=== PATIENT | female | born 1955 | race Caucasian/White ===

== ENCOUNTER 2023-01-26 07:04 | Day surgery (SDC) | payer OTHER ==
[~2023-01-26] VITALS: Ht 157.5 cm; Wt 96.6 kg
[2023-01-26] VITALS (16 sets, daily range): BP systolic 94–130; BP diastolic 51–84
[~2023-01-26 07:04] MED LIST: ALBU90OI INH; ASPI81CH PO; BREZTRI AEROS10.7 GM INH; LOSA50 PO; PRAV20 PO; Vitamin D1000 UNI1 PO; [UNRECOGNIZED DRUG - OTHER] PO
--- NOTE | 2023-01-26 09:32 | NUR ---
Ambulatory in Day Surgery. History, Chart, Medications and Allergies reviewed before start of procedure. Surgical site prepped with 2% Chlorhexidine cloth wipe. Patient confirms NPO status and agrees with scheduled surgery. Patient reports completing Chlorhexadine shower X2 prior to admission to hospital. Patient States Post-Procedure ride home has been arranged.
--- NOTE | 2023-01-26 16:26 | NUR ---
Discharge instructions reviewed with patient. Patient verbalizes understanding. Copy given to patient to take home. Patient States Post-Procedure ride home has been arranged. Discharged via wheelchair to private car for ride home.
== END 2023-01-26 16:20 | disposition home or self-care (01) ==
LOC: ORSCMMR 07:04 → NM 07:04 → ORSCMMR 07:05 → NM 07:06 → ORSCMMR 07:06 → NM 08:00 → ORSCMMR 16:20
PROVIDERS: Surgery
PROC: 07B60ZX Excision of Left Axillary Lymphatic, Open Approach, Diagnostic (ICD-10-PCS; principal; 2023-01-26 10:00)
PROC: 0HBU0ZZ Excision of Left Breast, Open Approach (ICD-10-PCS; principal; 2023-01-26 10:00)
DX: C50.412 Malignant neoplasm of upper-outer quadrant of left female breast (principal); Z17.0 Estrogen receptor positive status [ER+]; D36.0 Benign neoplasm of lymph nodes; I10 Essential (primary) hypertension; E78.00 Pure hypercholesterolemia, unspecified; Z87.891 Personal history of nicotine dependence; E66.9 Obesity, unspecified; Z68.39 Body mass index [BMI] 39.0-39.9, adult; Z79.899 Other long term (current) drug therapy; Z79.82 Long term (current) use of aspirin
CPT/HCPCS: 38792; 76098; 88307; 88342; A9520; J0690; J1100; J1885; J2371; J2405; J2704; J3010; J7120; Q9968

== ENCOUNTER 2025-01-01 08:28 | Day surgery (SDC) | payer OTHER ==
[2025-01-01] VITALS (10 sets, daily range): BP systolic 117–139; BP diastolic 53–71
[~2025-01-01] VITALS: Ht 154.9 cm; Wt 98.0 kg
[~2025-01-01 08:28] MED LIST changes: +Acetaminophen650 M1 PO; +Bupivacaine 0.5% HCl 5 MG/ML 30MLVIAL ONE
[2025-01-01] MEDS ORDERED: CeFAZolin Sodium 2,000 MG in NS 100 ML IV SCH (09:05)
--- NOTE | 2025-01-01 09:11 | NUR ---
Ambulatory in Day Surgery History, Chart, Medications and Allergies reviewed before start of procedure. Pre-Op teaching done. Pt verbalizes understanding. Patient States Post-Procedure ride home has been arranged.
[2025-01-01] MEDS ORDERED: Midazolam HCl 1MG / ML 2ML Vial ONE (09:19)
[2025-01-01] MEDS ORDERED: FentaNYL Citrate 50 MCG/ML 2 ML Injection ONE (09:19)
[2025-01-01] MEDS ORDERED: Rocuronium Bromide 10 MG/ML 5ML Injection IV ONE ×2 (09:55→10:57)
[2025-01-01] MEDS ORDERED: Bupivacaine 0.5% HCl 5 MG/ML 30MLVIAL ONE (10:00)
--- NOTE | 2025-01-01 10:14 | NUR ---
UPPER AND LOWER DENTURES SENT TO PACU.
[2025-01-01] MEDS ORDERED: Sugammadex Sodium 200 MG/2ML SDV (100 MG/ML) ONE ×2 (10:58→11:39)
[2025-01-01] MEDS ORDERED: Ketorolac Tromethamine 30mg Vial ONE (10:58)
[2025-01-01] MEDS ORDERED: HYDROcodone 5-APAP 325 TAB PO PRN ×2 (12:10→13:05)
--- NOTE | 2025-01-01 13:20 | NUR ---
Patient up to Ambulate independently. Gait steady. Discharge instructions reviewed with patient. Patient verbalizes understanding. Copy given to patient to take home, [facility]. Patient States Post-Procedure ride home has been arranged. Discharged via wheelchair to private car for ride home. PT BREAST BINDER REPLACED/REPOSITIONED PER PT REQ. PT INCISION C/D/I. PT REPORTS PAIN MUCH BETTER, DECLINES NEED FOR 2ND PAIN MED.
== END 2025-01-01 13:20 | disposition home or self-care (01) ==
LOC: ORSCMMR 08:28 → ORD 10:00 → ORSCMMR 10:00 → ORD 10:30 → ORSCMMR 13:20
PROVIDERS: Surgery
PROC: 0HBT0ZZ Excision of Right Breast, Open Approach (ICD-10-PCS; principal; 2025-01-01 10:00)
DX: C50.411 Malignant neoplasm of upper-outer quadrant of right female breast (principal); Z17.0 Estrogen receptor positive status [ER+]; Z17.21 Progesterone receptor positive status; Z17.32 Human epidermal growth factor receptor 2 negative status; I10 Essential (primary) hypertension; J45.909 Unspecified asthma, uncomplicated; F33.8 Other recurrent depressive disorders; E78.2 Mixed hyperlipidemia; K21.9 Gastro-esophageal reflux disease without esophagitis; E66.9 Obesity, unspecified; Z68.41 Body mass index [BMI] 40.0-44.9, adult; Z79.899 Other long term (current) drug therapy; Z87.891 Personal history of nicotine dependence
CPT/HCPCS: 76098; 88305; 88307; A9270; J0690; J1885; J2250; J2704; J3010; J7120

== ENCOUNTER 2025-01-18 10:17 | Day surgery (SDC) | payer OTHER ==
[~2025-01-18] VITALS: Ht 154.9 cm; Wt 98.2 kg
[2025-01-18] VITALS (13 sets, daily range): BP systolic 111–139; BP diastolic 58–90
[~2025-01-18 10:17] MED LIST changes: -Bupivacaine 0.5% HCl 5 MG/ML 30MLVIAL ONE
[2025-01-18] MEDS ORDERED: FentaNYL Citrate 50 MCG/ML 2 ML Injection ONE (10:41)
[2025-01-18] MEDS ORDERED: HYDROmorphone HCl/Pf 1MG SYR IV PRN (10:55)
[2025-01-18] MEDS ORDERED: FentaNYL Citrate 50 MCG/ML 2 ML Injection IV PRN ×2 (10:55)
[2025-01-18] MEDS ORDERED: Ondansetron HCl 2 MG / ML 2ML Vial IV PRN (10:55)
[2025-01-18] MEDS ORDERED: Albuterol 2.5 MG/3 ML VIAL INH PRN (10:55)
[2025-01-18] MEDS ORDERED: Ondansetron HCl 2 MG / ML 2ML Vial ONE (11:10)
[2025-01-18] MEDS ORDERED: Dexamethasone Sod Phos 10 MG/ML 1ML VIAL ONE (11:10)
--- NOTE | 2025-01-18 11:20 | NUR ---
Pre-Op teaching done. Pt verbalizes understanding. Patient confirms NPO status and agrees with scheduled surgery. Patient States Post-Procedure ride home has been arranged. History, Chart, Medications and Allergies reviewed before start of procedure.
[2025-01-18] MEDS ORDERED: Bupivacaine 0.5% W/EPI 1:200000 SDV 30 ML Vial ONE (11:49)
[2025-01-18] MEDS ORDERED: CeFAZolin Sodium 2,000 MG in NS 100 ML IV SCH (11:50)
[2025-01-18] MEDS ORDERED: Bupivacaine 0.5% HCl 5 MG/ML 30MLVIAL ONE (11:50)
[2025-01-18] MEDS ORDERED: Ketorolac Tromethamine 30mg Vial ONE ×2 (12:31→14:27)
[2025-01-18] MEDS ORDERED: OxyCODONE 5 mg/Acetamin 325 mg TABLET PO PRN (14:10)
[2025-01-18] MEDS ORDERED: HYDROmorphone HCl/Pf 1MG SYR ONE ×2 (14:18→14:39)
--- NOTE | 2025-01-18 15:44 | NUR ---
PT DOING WELL MEDICATED WITH 1 PERCOCET FOR PAIN. NO COMPLAINTS OF N/V Patient States Post-Procedure ride home has been arranged. Discharged via wheelchair to private car for ride home. Discharge instructions reviewed with patient. Patient verbalizes understanding. Copy given to patient to take home.
== END 2025-01-18 23:00 | disposition home or self-care (01) ==
LOC: ORSCMMR 10:17 → ORD 12:30 → ORSCMMR 12:30
PROVIDERS: Surgery
PROC: 07B50ZX Excision of Right Axillary Lymphatic, Open Approach, Diagnostic (ICD-10-PCS; principal; 2025-01-18 12:30)
PROC: 0HBT0ZZ Excision of Right Breast, Open Approach (ICD-10-PCS; principal; 2025-01-18 12:30)
DX: C50.411 Malignant neoplasm of upper-outer quadrant of right female breast (principal); D36.0 Benign neoplasm of lymph nodes; Z17.0 Estrogen receptor positive status [ER+]; Z17.21 Progesterone receptor positive status; Z17.32 Human epidermal growth factor receptor 2 negative status; Z85.3 Personal history of malignant neoplasm of breast; I10 Essential (primary) hypertension; J45.909 Unspecified asthma, uncomplicated; F32.9 Major depressive disorder, single episode, unspecified; E78.2 Mixed hyperlipidemia; Z79.899 Other long term (current) drug therapy; E66.9 Obesity, unspecified; Z68.39 Body mass index [BMI] 39.0-39.9, adult
CPT/HCPCS: 38792; 88305; 88307; 88342; A9270; A9520; J0690; J1100; J1171; J1885; J2405; J2704; J3010; J7120; Q9968

== ENCOUNTER → 2025-01-28 | Outpatient (CLI) | payer OTHER ==
[~2025-01-28] MED LIST changes: +OXYC5 PO
[2025-01-28 15:47] LABS: BASOPHILS ABSOLUTE AUTO 0.05 K/mm3 (0.00-0.23); BASOPHILS PERCENT AUTO 1 % (0-2); EOSINOPHILS ABSOLUTE AUTO 0.20 K/mm3 (0.00-0.68); EOSINOPHILS PERCENT AUTO 3 % (0-6); Hematocrit 42.1 % (33.0-51.0); Hemoglobin 13.7 g/dL (11.5-16.0); IMMATURE GRAN ABSOLUTE AUTO 0.05 K/mm3 (0.00-0.10); IMMATURE GRAN PERCENT AUTO 1 % (0-1); LYMPHOCYTES ABSOLUTE AUTO 1.63 K/mm3 (0.84-5.20); LYMPHOCYTES PERCENT AUTO 22 % (21-46); MONOCYTES ABSOLUTE AUTO 0.50 K/mm3 (0.16-1.47); MONOCYTES PERCENT AUTO 7 % (4-13); Mean Corpuscular HGB Conc 32.5 g/dL (31.5-36.5); Mean Corpuscular Volume 92 fL (80-100); NEUTROPHILS ABSOLUTE AUTO 4.87 K/mm3 (1.96-9.15); NEUTROPHILS PERCENT AUTO 67 % (41-73); NRBC ABSOLUTE 0.00 K/mm3 (0.00-0.02); NRBC Auto 0.0 /100 WBC (0.0-0.2); Platelet Count 233 K/mm3 (150-400); RDW Coefficient Variation 13.2 % (11.7-14.2); RDW Standard Deviation 44.6 fL (35.1-46.3)
[2025-01-28 19:13] LABS: Anion Gap 5.0 mmol/L (3-11); Blood Urea Nitrogen 13.0 mg/dL (8-24); CO2, Blood 30.0 mmol/L (21-32); Calcium, Blood 9.0 mg/dL (8.5-10.1); Chloride, Blood 106.0 mmol/L (98-108); Creatinine, Blood 0.85 mg/dL (0.40-1.00); Glucose, Blood 144.0 mg/dL (70-99); Potassium, Blood 3.9 mmol/L (3.5-5.5); Sodium, Blood 137.0 mmol/L (136-145)
== END | disposition home or self-care (01) ==
LOC: LAB SHORT 14:28 → LAB 14:28
PROVIDERS: Surgery
DX: Z01.812 Encounter for preprocedural laboratory examination (principal); C50.411 Malignant neoplasm of upper-outer quadrant of right female breast
CPT/HCPCS: 80048; 85025